=== PATIENT | female | born 1925 | race Caucasian/White ===

== ENCOUNTER 2016-11-13 11:44 | Inpatient (IN) | payer MEDICARE, BC ==
[~2016-11-13] VITALS: Ht 157.5 cm; Wt 66.9 kg
[2016-11-13] VITALS (10 sets, daily range): BP systolic 145–172; BP diastolic 65–72; PULSE 68–85; RESP 14–20; TEMP 98.2–98.4; O2SAT 92–98
[~2016-11-13 11:44] MED LIST: AMLO5TAB22 PO; ATOR40TA PO; LANO0.1212 PO; LEVO50TA4 PO; NITR0.4S SL; PANT40IN3 PO; PARI1CAP PO; SERT25TA83 PO; WARF5TAB PO
[2016-11-13] MEDS ORDERED: MORPHINE SULFATE 4 MG/ML INJ IV PUSH ONE (12:00)
[2016-11-13 12:01] LABS: AUTOMATED NEUTROPHIL # 9.3 TH/MM3 (1.8-7.7); BASOPHIL # 0.1 TH/MM3 (0-0.2); BASOPHIL % 0.5 % (0.0-2.0); EOSINOPHIL % 0.2 % (0.0-4.0); HEMATOCRIT 34.3 % (35.0-46.0); LYMPH % 10.7 % (9.0-44.0); LYMPHOCYTE # 1.2 TH/MM3 (1.0-4.8); MEAN CELL VOLUME 79.9 FL (80.0-100.0); MEAN CORPUSCULAR HGB CONC 32.6 % (32.0-36.0); MONO % 6.8 % (0.0-8.0); NEUT % 81.8 % (16.0-70.0); PLATELET COUNT 244 TH/MM3 (150-450); RED BLOOD COUNT 4.28 MIL/MM3 (4.00-5.30); RED CELL DISTRIBUTION WIDTH 15.9 % (11.6-17.2); WHITE BLOOD COUNT 11.4 TH/MM3 (4.0-11.0)
[2016-11-13 12:02] LABS: HEMO FLAGS DIFF FINAL
[2016-11-13 12:10] LABS: CHLORIDE 103 MEQ/L (98-107); POTASSIUM 3.7 MEQ/L (3.5-5.1); SODIUM (NA) 143 MEQ/L (136-145)
[2016-11-13 12:13] LABS: PROTHROMBIN TIME - PATIENT 46.7 SEC (9.8-11.6)
[2016-11-13 12:14] LABS: ANION GAP 9 MEQ/L (5-15); BICARBONATE 31.3 MEQ/L (21.0-32.0); BLOOD UREA NITROGEN 32 MG/DL (7-18)
[2016-11-13 12:17] LABS: ALT (GPT) 31 U/L (10-53); AST (GOT) 24 U/L (15-37); GLOMERULAR FILTRATION RATE 30 ML/MIN (>89)
[2016-11-13 12:19] LABS: TOTAL BILIRUBIN ADULT 0.7 MG/DL (0.2-1.0)
[2016-11-13 12:20] LABS: ALKALINE PHOSPHATASE 51 U/L (45-117)
[2016-11-13] MEDS ORDERED: AMLO5TAB2 PO (12:33)
[2016-11-13] MEDS ORDERED: ATOR40TA16 PO (12:33)
[2016-11-13] MEDS ORDERED: PRED5TAB PO (12:33)
[2016-11-13] MEDS ORDERED: NITR1SUS2 PO (12:33)
[2016-11-13] MEDS ORDERED: LEVO50TA4 PO (12:33)
[2016-11-13] MEDS ORDERED: LACTTAB13 PO (12:33)
[2016-11-13] MEDS ORDERED: DIGO0.127 PO (12:33)
[2016-11-13] MEDS ORDERED: KETOC2%T TOPICAL (12:33)
[2016-11-13] MEDS ORDERED: PANT40TA3 PO (12:33)
[2016-11-13] MEDS ORDERED: MELA5TAB15 PO (12:33)
[2016-11-13] MEDS ORDERED: PARI1CAP4 PO (12:33)
[2016-11-13] MEDS ORDERED: WARF-58 PO (12:34)
[2016-11-13] MEDS ORDERED: SERT-132 PO (12:34)
--- NOTE | 2016-11-13 12:55 | PD ---
HPI Chief Complaint: Fall Time Seen by Provider: 11:48 Travel History International Travel<30 days: No Contact w/Intl Traveler<30days: No Traveled to known affect area: No History of Present Illness HPI This is an 89 year old female who presents to the emergency department having fallen in the shower landing on her left side, with severe left sided rib pain, constant. She is not sure if she hit her head. She is on coumadin. She denies any other injuries. PFSH Past Medical History Hx Anticoagulant Therapy: Yes Arthritis: Yes Atrial Fibrillation: Yes Depression: Yes Heart Rhythm Problems: Yes Cancer: Yes (COLON) Cardiac Catheterization: Yes Cardiovascular Problems: Yes High Cholesterol: Yes Chemotherapy: Yes Congestive Heart Failure: Yes Cerebrovascular Accident: Yes Coronary Artery Disease: Yes Diabetes: No Diminished Hearing: No GERD: Yes Hypertension: Yes Immunizations Current: Yes Renal Failure: Yes (CKD, STENT L KIDNEY) Tetanus Vaccination: Unknown Influenza Vaccination: Yes ?: Not Past Surgical History Abdominal Surgery: Yes (COLON RESECTION) Appendectomy: Yes Cardiac Surgery: Yes (PACEMAKER) Coronary Artery Bypass Graft: No Genitourinary Surgery: Yes (STENT L KIDNEY) Hysterectomy: Yes Pacemaker: Yes Tonsillectomy: Yes Family History Family Myocardial Infarction: Yes Social History Alcohol Use: No Tobacco Use: No Substance Use: No Allergies-Medications (Allergen,Severity, Reaction): Coded Allergies: Sulfa (Verified Allergy, Unknown, RASH, 11/13/16) Reported Meds & Prescriptions Reported Meds & Active Scripts Active Reported Warfarin 3 Mg Tab 3.5 Mg PO DAILY Sertraline (Sertraline HCl) 50 Mg Tab 50 Mg PO DAILY Prednisone 5 Mg Tab 5 Mg PO DAILY Paricalcitol 1 Mcg Cap 1 Mcg PO DAILY Pantoprazole (Pantoprazole Sodium) 40 Mg Tab 40 Mg PO DAILY Nitrofurantoin Liq (Nitrofurantoin) 25 Mg/5 Ml Susp 100 Mg PO DAILY Melatonin 5 Mg Tab 3 Mg PO HS Levothyroxine (Levothyroxine Sodium) 50 Mcg Tab 50 Mcg PO DAILY Nizoral Topical Shampoo (Ketoconazole) 2% Sham 1 Applic TOPICAL 1XWEEK Apply to scalp Floranex (Lactobacillus Acidophilus) 1 Tab 4 Tab PO DAILY Digox (Digoxin) 0.125 Mg Tab 0.125 Mg PO 3XS WEEK Atorvastatin (Atorvastatin Calcium) 40 Mg Tab 40 Mg PO HS Amlodipine (Amlodipine Besylate) 5 Mg Tab 5 Mg PO BID Review of Systems Except as stated in HPI: all other systems reviewed are Neg Physical Exam Narrative GENERAL:Frail elderly female, uncomfortable in pain. SKIN: Warm and dry. HEAD: Atraumatic. Normocephalic. EYES: Pupils equal and round. No injection or drainage. ENT: Moist mucous membranes NECK: Trachea midline. CARDIOVASCULAR: Regular rate and rhythm. No murmur appreciated. RESPIRATORY: Clear to auscultation. Breath sounds equal bilaterally. Tender to palpation along the left lower anterior rib cage. GASTROINTESTINAL: Abdomen soft, non-tender, nondistended. MUSCULOSKELETAL: No obvious deformities. NEUROLOGICAL: Awake and alert. No obvious cranial nerve deficits. Moving all extremities. PSYCHIATRIC: Appropriate mood and affect; insight and judgment normal. Data Data Last Documented VS Vital Signs Date Time Temp Pulse Resp B/P Pulse Ox O2 Delivery O2 Flow Rate FiO2 11/13/16 12:43 74 18 148/66 94 Room Air 11/13/16 11:48 98.2 Orders Complete Blood Count With Diff (11/13/16 11:48) Comprehensive Metabolic Panel (11/13/16 11:48) Prothrombin Time / Inr (Pt) (11/13/16 11:48) Chest, Single Ap (11/13/16 ) Morphine Inj (Morphine Inj) (11/13/16 12:00) Ct Brain W/O Iv Contrast(Rout) (11/13/16 ) ^ Insert Iv (11/13/16 12:23) Ct Thorax/ Chest Wo Iv Contras (11/13/16 ) Ketamine Inj (Ketalar Inj) (11/13/16 13:30) Electrocardiogram (11/13/16 ) Troponin I (11/13/16 13:27) Admit Order (Ed Use Only) (11/13/16 13:27) Labs Laboratory Tests Test 11/13/16 11:55 White Blood Count 11.4 TH/MM3 Red Blood Count 4.28 MIL/MM3 Hemoglobin 11.2 GM/DL Hematocrit 34.3 % Mean Corpuscular Volume 79.9 FL Mean Corpuscular Hemoglobin 26.0 PG Mean Corpuscular Hemoglobin 32.6 % Concent Red Cell Distribution Width 15.9 % Platelet Count 244 TH/MM3 Mean Platelet Volume 7.9 FL Neutrophils (%) (Auto) 81.8 % Lymphocytes (%) (Auto) 10.7 % Monocytes (%) (Auto) 6.8 % Eosinophils (%) (Auto) 0.2 % Basophils (%) (Auto) 0.5 % Neutrophils # (Auto) 9.3 TH/MM3 Lymphocytes # (Auto) 1.2 TH/MM3 Monocytes # (Auto) 0.8 TH/MM3 Eosinophils # (Auto) 0.0 TH/MM3 Basophils # (Auto) 0.1 TH/MM3 CBC Comment DIFF FINAL Differential Comment Prothrombin Time 46.7 SEC Prothromb Time International 4.0 RATIO Ratio Sodium Level 143 MEQ/L Potassium Level 3.7 MEQ/L Chloride Level 103 MEQ/L Carbon Dioxide Level 31.3 MEQ/L Anion Gap 9 MEQ/L Blood Urea Nitrogen 32 MG/DL Creatinine 1.60 MG/DL Estimat Glomerular Filtration 30 ML/MIN Rate Random Glucose 105 MG/DL Calcium Level 9.0 MG/DL Total Bilirubin 0.7 MG/DL Aspartate Amino Transf 24 U/L (AST/SGOT) Alanine Aminotransferase 31 U/L (ALT/SGPT) Alkaline Phosphatase 51 U/L Troponin I 0.02 NG/ML Total Protein 7.4 GM/DL Albumin 3.6 GM/DL MDM Medical Decision Making Medical Screen Exam Complete: Yes Emergency Medical Condition: Yes Interpretation(s) Afebrile, no tachycardia, mild hypertension Mild leukocytosis Left shift Renal insufficiency Troponin is normal INR is 4 Last [address] 11/13/16 0000 Signed Impressions: Service Date/Time: Sunday, November 13, 2016 14:05 - CONCLUSION: 1. Stable noncontrast head CT. No acute finding is identified. 2. Chronic changes include cerebral atrophy and periventricular white matter low attenuation characteristic of chronic microvascular ischemia. Christopher Jain MD Chest X-Ray 11/13/16 0000 Signed Impressions: Service Date/Time: Sunday, November 13, 2016 12:41 - CONCLUSION: 1. Questionable fracture of one of the left upper ribs possibly the third rib laterally. Suggest correlation for pain at this site. No pneumothorax is present. If it would assist with clinical management x-ray rib series may be helpful for further evaluation. 2. Otherwise, stable examination of the chest. Christopher Jain MD Chest CT 11/13/16 0000 Signed Impressions: Service Date/Time: Sunday, November 13, 2016 14:10 - CONCLUSION: 1. The left third through seventh ribs are fractured anterolaterally. There is no associated pneumothorax. 2. Small left pleural effusion with bilateral dependent atelectasis and possible consolidation/contusion in the left lower lobe. Christopher Jain MD Differential Diagnosis Rib fracture, pneumothorax, pulmonary contusion, intracranial hemorrhage Narrative Course This is an 89-year-old female who presents to the emergency department having had a fall from standing in her shower. She is complaining of severe left- sided rib pain. She was placed on a monitor and an IV was established. She was given 3 mg of IV morphine. Her only complaint is her left rib pain. She has a benign abdomen. She is on Coumadin. CT of the head and chest were obtained. Chest CT demonstrates fractures of ribs 3 through 7. She was slightly hypoxic with an oxygen saturation between 89 and 91% on room air and very uncomfortable despite IV morphine. I decided to try a low-dose sub- dissociative ketamine dose as her blood pressure was reasonable and I didn't suspect a head injury. This significantly improved her anesthesia and her oxygen saturation seemed to improve because she was more comfortable taking deep breaths. She was given one additional dose prior to transport. Patient will be admitted to the intensive care unit at the [facility]. I spoke to Dr. Harry regarding the patient. Critical Care Narrative Aggregate critical care time was 45 minutes. Time to perform other separately billable procedures was not included in the critical care time. My time did not include minutes spent treating any other patients simultaneously or on activities that did not directly contribute to the patient's treatment. The services I provided to this patient were to treat and/or prevent clinically significant deterioration that could result in: Disability, I provided critical care services requiring my management, as noted below: Chart data review, documentation time, medication orders and management, vital sign assessments/reviewing monitor data, ordering and reviewing lab tests, ordering and interpreting/reviewing x-rays and diagnostic studies, care of the patient and discussion of the patient with the admitting physicians. Physician Communication Physician Communication Discussed with Dr. Felix Diagnosis Primary Impression: Multiple rib fractures involving four or more ribs Admitting Information Admitting Physician Requests: Admit Lavinia Sharp MD Nov 13, 2016 12:55
--- NOTE | 2016-11-13 13:09 | RADHPO ---
EXAM DATE/TIME: 11/13/2016 12:41 [facility] COMPARISON: CHEST SINGLE AP, May 28, 2016, 2:08. INDICATIONS : Left side chest and rib pain post fall today. MEDICAL HISTORY : Hypertension. Cardiovascular disease. SURGICAL HISTORY : Pacemaker. ENCOUNTER: Initial ACUITY: 1 day PAIN SCORE: 10/10 LOCATION: Left chest FINDINGS: Portable AP view the chest demonstrates cardiac silhouette size is upper limits for normal with left chest wall cardiac pacing device present. Lungs are underinflated but no effusion, consolidation, or pneumothorax is visualized. There is a potential cortical break in one of the upper lateral left ribs , possibly the third rib. No other rib fracture or acute finding is identified. CONCLUSION: 1. Questionable fracture of one of the left upper ribs possibly the third rib laterally. Suggest cathi elation for pain at this site. No pneumothorax is present. If it would assist with clinical managemen t x-ray rib series may be helpful for further evaluation. 2. Otherwise, stable examination of the chest. Christopher Jain MD on November 13, 2016 at 13:04 Board Certified Radiologist. This report was verified electronically.
[2016-11-13] MEDS ORDERED: KETAMINE HCL 500 MG/5 ML VIAL IV PUSH ONE ×2 (13:15→14:30)
[2016-11-13] MEDS ORDERED: KETAMINE HCL 500 MG/10 ML VIAL IV PUSH ONE ×3 (13:30)
--- NOTE | 2016-11-13 14:52 | RADHPO ---
EXAM DATE/TIME: 11/13/2016 14:05 [facility] COMPARISON: CT BRAIN W/O CONTRAST, May 28, 2016, 2:28. INDICATIONS : Fall today, cephalgia. RADIATION DOSE: 69.45 CTDIvol (mGy) MEDICAL HISTORY : Stroke. Myocardial infarction. Congestive heart failure. SURGICAL HISTORY : Pacemaker. ENCOUNTER: Initial ACUITY: 1 day PAIN SCALE: 5/10 LOCATION: Bilateral head TECHNIQUE: Multiple contiguous axial images were obtained of the head. Using automated exposure control and adj ustment of the mA and/or kV according to patient size, radiation dose was kept as low as reasonably a chievable to obtain optimal diagnostic quality images. FINDINGS: CEREBRUM: There is mild generalized cerebral atrophy. Ventricles are stable in size. There is periventricular w meme matter low attenuation that is stable. No evidence of midline shift, mass lesion, hemorrhage or acute infarction. No extra-axial fluid collections are seen. POSTERIOR FOSSA: The cerebellum and brainstem are intact. The 4th ventricle is midline. The cerebellopontine angle i s unremarkable. EXTRACRANIAL: The visualized portion of the orbits is intact. SKULL: The calvaria is intact. No evidence of skull fracture. CONCLUSION: 1. Stable noncontrast head CT. No acute finding is identified. 2. Chronic changes include cerebral atrophy and periventricular white matter low attenuation characte ristic of chronic microvascular ischemia. Christopher Jain MD on November 13, 2016 at 14:49 Board Certified Radiologist. This report was verified electronically.
--- NOTE | 2016-11-13 14:56 | RADHPO ---
EXAM DATE/TIME: 11/13/2016 14:10 [facility] COMPARISON: No previous studies available for comparison. INDICATIONS : Left sided chest pain status post fall onto left side today. RADIATION DOSE: 13.12 CTDIvol (mGy) MEDICAL HISTORY : Congestive heart failure. Myocardial infarction. Stroke. SURGICAL HISTORY : Pacemaker. ENCOUNTER: Initial ACUITY: 1 day PAIN SCALE: 10/10 LOCATION: Left chest TECHNIQUE: Volumetric scanning of the chest was performed. Using automated exposure control and adjustment of t he mA and/or kV according to patient size, radiation dose was kept as low as reasonably achievable to obtain optimal diagnostic quality images. FINDINGS: LUNGS: There is a small left pleural effusion. Dependent atelectasis bilaterally and there may be a mild deg ree of consolidation at the left lung base. No pneumothorax is visualized. There is a calcified granu hernandez in the left upper lobe. PLEURAE: There is a small left pleural effusion. MEDIASTINUM: The heart and great vessels demonstrate no acute abnormality. There is no mediastinal or hilar lymph adenopathy. Coronary artery calcification is present. There is severe atherosclerotic disease of the aorta. Small pericardial effusion is present. Cardiac pacing wires are present within the right heart . AXILLAE: Within normal limits. No lymphadenopathy. MUSCULOSKELETAL: There are left anterior lateral rib fractures involving the third through seventh ribs. No other frac ture is seen. MISCELLANEOUS: The visualized upper abdominal organs demonstrate no acute abnormality. CONCLUSION: 1. The left third through seventh ribs are fractured anterolaterally. There is no associated pneumoth orax. 2. Small left pleural effusion with bilateral dependent atelectasis and possible consolidation/contus ion in the left lower lobe. Christopher Jain MD on November 13, 2016 at 14:51 Board Certified Radiologist. This report was verified electronically.
[2016-11-13] MEDS ORDERED: SODIUM CHLORIDE 0.9% FLUSH 5 ML FLUSH IVF PRN (15:30)
[2016-11-13] MEDS ORDERED: ONDANSETRON HCL 4 MG/2 ML VIAL IV PRN (15:30)
[2016-11-13] MEDS ORDERED: NALOXONE HCL 0.4 MG/ML AMP IV PRN (15:30)
[2016-11-13] MEDS ORDERED: Post-op Orders (for Pharmacy) MISC XX ONE (15:30)
[2016-11-13] MEDS: PANTOPRAZOLE SOD 40 MG DELAYED RELEASE TAB PO SCH (15:42)
[2016-11-13] MEDS: SODIUM CHLOR 0.9% 1000 ML INJ 1,000 ML IV SCH (15:43)
[2016-11-13] MEDS ORDERED: MORPHINE SULFATE 4 MG/ML INJ IV ONE (15:45)
[2016-11-13] MEDS: oxyCODONE/ACETAMINOPHEN 5 MG/325 MG TAB PO PRN ×2 (16:01→22:25)
--- NOTE | 2016-11-13 16:44 | MH ---
cc: CAMILA AGUILERA MD DATE OF ADMISSION: 11/13/2016 REASON FOR ADMISSION Fall, fracture of the left-sided ribs, respiratory insufficiency, pulmonary contusion. HISTORY OF PRESENT ILLNESS This 89-year-old female fell in the bathtub and was transferred to [facility] ER, we were called to transfer the patient to ICU here for further care. The patient apparently fell in the bathtub this morning and now she is complaining of severe left-sided chest pain. PAST MEDICAL HISTORY 1. Hypothyroidism. 2. Hypertension. 3. COPD. 4. Chronic atrial fibrillation. PAST SURGICAL HISTORY Unknown. MEDICATIONS Medications are on the record. The patient is on Coumadin. INR is 4. SOCIAL HISTORY The patient does not smoke and drink. PHYSICAL EXAMINATION GENERAL: Reveals an 89-year-old female. HEENT: Normocephalic. No trauma to the head. Pupils equally reactive. Extraocular muscles intact. NECK: Supple. Bilateral carotid pulses. No bruits. CHEST: Clear. Decreased breath sounds. Bilateral splinting of the left side of the chest and very tender on palpation of the left chest consistent with 4, 5, 6 and 7 rib fractures and pulmonary contusion. HEART: Irregular rhythm. The patient is in slow a-fib of about 80-85. ABDOMEN: Soft, active bowel sounds. No rebound. No guarding. No masses. No signs of trauma to the abdomen. EXTREMITIES: The patient has palpable femoral pulses and palpable dorsalis pedis and posterior tibial pulses. No signs of acute vascular deficit. BACK: Back is normal. IMPRESSION The patient fell in the tub with currently rib fractures, pulmonary contusion and small hemothorax. The patient is admitted for further care. The patient might need to be intubated in the future should her pulmonary status worsen which is common in elderly patients. Critical care time 50 minutes. Camila KING /3:45 PM /4:20 PM
[2016-11-13] MEDS: MORPHINE SULFATE 4 MG/ML INJ IV PUSH PRN ×3 (17:23→22:21)
--- NOTE | 2016-11-13 17:33 | RADRPT ---
EXAM DATE/TIME: 11/13/2016 17:12 [facility] COMPARISON: No previous studies available for comparison. INDICATIONS : Fall. Pelvic pain. MEDICAL HISTORY : None. SURGICAL HISTORY : None. ENCOUNTER: Initial ACUITY: 2 days PAIN SCORE: 8/10 LOCATION: Bilateral pelvis FINDINGS: No fracture is seen. The hip joints are normally aligned. There is some hypertrophic change seen ar ound the periphery of the left femoral head. The bowel gas pattern appears normal. CONCLUSION: No acute abnormality is seen. There is some mild hypertrophic change seen at the periphery of the le ft femoral head. Christopher Salazar MD on November 13, 2016 at 17:25 Board Certified Radiologist. This report was verified electronically.
[2016-11-13] MEDS ORDERED: DOCUSATE SODIUM 100 MG CAP PO SCH (21:00)
[2016-11-13] MEDS: SODIUM CHLORIDE 0.9% FLUSH 5 ML FLUSH IVF SCH (21:00)
[2016-11-14] VITALS (14 sets, daily range): BP systolic 119–160; BP diastolic 58–70; PULSE 64–89; RESP 13–30; TEMP 98–98.5; O2SAT 92–95
[2016-11-14 03:46] LABS: HEMATOCRIT 30.6 % (35.0-46.0); MEAN CELL VOLUME 80.7 FL (80.0-100.0); MEAN CORPUSCULAR HGB CONC 32.2 % (32.0-36.0); PLATELET COUNT 207 TH/MM3 (150-450); RED BLOOD COUNT 3.79 MIL/MM3 (4.00-5.30); RED CELL DISTRIBUTION WIDTH 17.1 % (11.6-17.2); REVIEW FLAG FINAL; WHITE BLOOD COUNT 12.3 TH/MM3 (4.0-11.0)
[2016-11-14] MEDS: LEVOTHYROXINE SODIUM 50 MCG TAB PO SCH (06:09)
--- NOTE | 2016-11-14 06:37 | RADRPT ---
EXAM DATE/TIME: 11/14/2016 04:39 [facility] COMPARISON: CHEST SINGLE AP, November 13, 2016, 12:41. INDICATIONS : Evaluate after traumatic injury and rib fractures. MEDICAL HISTORY : Congestive heart failure. Myocardial infarction. Stroke. SURGICAL HISTORY : Pacemaker. ENCOUNTER: Subsequent ACUITY: 2 days PAIN SCORE: Non-responsive. LOCATION: Bilateral chest FINDINGS: Increasing consolidation in the left lower lobe with loss of delineation of the entire left hemidiaph ragm. There is some hazy opacity in the right lower chest with mild blunting of the costophrenic ang le suggesting a right pleural effusion. The heart is upper limits normal size. Patient has multiple known left rib fractures. There is a questionable pleural reflection at the left apex suggesting a 12 mm left pneumothorax. Calcified nodule left upper lung stable. CONCLUSION: 1. Findings chest the development of a small left apical pneumothorax measuring 12 mm. 2. Increasing consolidation in the left lower lobe. Timothy Chen MD on November 14, 2016 at 6:32 Board Certified Radiologist. This report was verified electronically.
--- NOTE | 2016-11-14 07:10 | PD.CONS ---
HPI Service Critical Care Medicine Consult Requested By Trauma Service Primary Care Physician Non-Staff History of Present Illness Elderly, frail woman fell and fractured several ribs left side, shubham-lateral. Considerable pain. Required narcan for narcotic reversal after receiving morphine 4 mg. Will reduce dose and add tylenol. Small apical pneumothorax noted this morning on CXR and some atelectasis LLL. I won't do formal consult but will follow with you. Past Family Social History Allergies: Coded Allergies: Sulfa (Verified Allergy, Unknown, RASH, 11/13/16) Physical Exam Vital Signs Vital Signs Date Time Temp Pulse Resp B/P Pulse Ox O2 Delivery O2 Flow Rate FiO2 11/14/16 06:00 71 11/14/16 04:00 78 11/14/16 04:00 98.1 68 19 119/58 95 11/14/16 02:00 72 11/14/16 00:00 98.2 89 24 160/66 92 11/14/16 00:00 86 11/13/16 22:00 68 11/13/16 20:44 92 Nasal Cannula 3.00 11/13/16 20:00 83 11/13/16 20:00 98.2 84 18 156/67 93 11/13/16 19:00 94 Nasal Cannula 2.00 11/13/16 18:00 76 11/13/16 16:00 82 11/13/16 16:00 98.4 71 14 172/72 95 11/13/16 15:47 97 Nasal Cannula 3.00 11/13/16 14:35 82 18 155/66 95 Nasal Cannula 4 11/13/16 13:35 76 18 160/70 98 Nasal Cannula 4 11/13/16 12:43 74 18 148/66 94 Room Air 11/13/16 11:48 98.2 85 20 145/65 95 11/13/16 11:45 95 Room Air Laboratory Laboratory Tests Test 11/13/16 11/13/16 11/14/16 11:55 15:20 02:58 White Blood Count 11.4 12.3 Red Blood Count 4.28 3.79 Hemoglobin 11.2 9.9 Hematocrit 34.3 30.6 Mean Corpuscular Volume 79.9 80.7 Mean Corpuscular Hemoglobin 26.0 26.0 Mean Corpuscular Hemoglobin 32.6 32.2 Concent Red Cell Distribution Width 15.9 17.1 Platelet Count 244 207 Mean Platelet Volume 7.9 8.1 Neutrophils (%) (Auto) 81.8 Lymphocytes (%) (Auto) 10.7 Monocytes (%) (Auto) 6.8 Eosinophils (%) (Auto) 0.2 Basophils (%) (Auto) 0.5 Neutrophils # (Auto) 9.3 Lymphocytes # (Auto) 1.2 Monocytes # (Auto) 0.8 Eosinophils # (Auto) 0.0 Basophils # (Auto) 0.1 CBC Comment DIFF FINAL Differential Comment Prothrombin Time 46.7 Prothromb Time International 4.0 Ratio Sodium Level 143 Potassium Level 3.7 Chloride Level 103 Carbon Dioxide Level 31.3 Anion Gap 9 Blood Urea Nitrogen 32 Creatinine 1.60 Estimat Glomerular Filtration 30 Rate Random Glucose 105 Calcium Level 9.0 Total Bilirubin 0.7 Aspartate Amino Transf 24 (AST/SGOT) Alanine Aminotransferase 31 (ALT/SGPT) Alkaline Phosphatase 51 Troponin I 0.02 Total Protein 7.4 Albumin 3.6 Nasal Screen MRSA (PCR) NEGATIVE Result Diagram: 11/14/16 0258 11/13/16 1155 Bandar Lazo MD Nov 14, 2016 07:10
[2016-11-14] MEDS ORDERED: MORPHINE SULFATE 4 MG/ML INJ IV PUSH PRN ×2 (07:15→07:45)
[2016-11-14] MEDS ORDERED: ACETAMINOPHEN 325 MG TAB PO PRN (07:15)
[2016-11-14] MEDS ORDERED: LACTULOSE SYRUP 20 GM/30 ML CUP PO PRN (07:30)
[2016-11-14] MEDS: ACETAMINOPHEN 1000 MG/100 ML VIAL IV SCH ×3 (08:00→20:23)
[2016-11-14] MEDS: SODIUM CHLOR 0.9% 1000 ML INJ 1,000 ML IV SCH ×2 (08:40→23:56)
[2016-11-14] MEDS ORDERED: PILL SPLITTER OTHER PRN (09:00)
[2016-11-14] MEDS: SODIUM CHLORIDE 0.9% FLUSH 5 ML FLUSH IVF SCH ×2 (09:00→20:24)
[2016-11-14] MEDS: LACTOBACILLUS ACIDOPHILUS TAB PO SCH (09:42)
[2016-11-14] MEDS: DIGOXIN 0.125 MG TAB PO SCH (09:42)
[2016-11-14] MEDS: PARICALCITOL 1 MCG CAP PO SCH (09:43)
[2016-11-14] MEDS: SERTRALINE HCL 50 MG TAB PO SCH (09:43)
[2016-11-14] MEDS: MAGNESIUM HYDROXIDE SUSP 30 ML CUP PO SCH (09:43)
[2016-11-14] MEDS: LIDOCAINE HCL 5% PATCH TD SCH (09:43)
[2016-11-14] MEDS: DOCUSATE SODIUM 50 MG/SENNA 8.6 MG TAB PO SCH ×2 (09:43→20:23)
[2016-11-14] MEDS ORDERED: RESP: ALBUTEROL 2.5 MG/IPRATROPIUM 0.5 MG NEB (PRN) NEB (10:15)
[2016-11-14] MEDS: predniSONE 5 MG TAB PO SCH (10:59)
[2016-11-14] MEDS: PANTOPRAZOLE SOD 40 MG DELAYED RELEASE TAB PO SCH (15:31)
[2016-11-14] MEDS: oxyCODONE/ACETAMINOPHEN 5 MG/325 MG TAB PO PRN ×2 (15:57→21:56)
[2016-11-14] MEDS: RESP: ALBUTEROL 2.5 MG/IPRATROPIUM 0.5 MG NEB (SCH) NEB ×4 (16:00→23:47)
--- NOTE | 2016-11-14 16:16 | HHI.CCPN ---
Subjective Brief History 89-year-old female fell in the bathtub and was initially transferred to [facility]. Patient was found to have multiple left-sided rib fractures, hemothorax and pulmonary contusion so was transferred to [facility] for trauma services. INJURIES: LEFT rib fx (3-7) LEFT lung contusion Small LEFT hemothorax 24 Hour Review/Hospital Course 11/14/16 Patient has been observed in ICU since last night. Patient received IV morphine 4 mg last night and developed respiratory depression. 1 dose of Narcan was effective. Upon examination patient is in significant pain and is breathing very shallow. Patient refuses refuses to move, talk or eat at this time. (Manpreet Horton) Objective Vital Signs Date Time Temp Pulse Resp B/P Pulse Ox O2 Delivery O2 Flow Rate FiO2 11/14/16 14:28 18 11/14/16 14:00 69 11/14/16 12:00 98.0 127/60 95 11/14/16 08:25 Nasal Cannula 4.00 Intake and Output 11/13/16 11/13/16 11/14/16 08:00 16:00 00:00 Intake Total 236 ml Balance 236 ml (Manpreet Horton) Result Diagram: 11/14/16 0258 11/13/16 1155 Imaging Last 24 hours Impressions Chest X-Ray 11/14/16 0600 Signed Impressions: Service Date/Time: Monday, November 14, 2016 04:39 - CONCLUSION: 1. Findings chest the development of a small left apical pneumothorax measuring 12 mm. 2. Increasing consolidation in the left lower lobe. Timothy Chen MD (Manpreet Horton) Assessment and Plan Plan GENERAL: 89-year-old frail female lying in bed. SKIN: Warm and dry. HEAD: Normocephalic. EYES: PERRL. ENT: No nasal bleeding or discharge. Mucous membranes pink and moist. NECK: Trachea midline. No JVD. CARDIOVASCULAR: Regular rate and rhythm. RESPIRATORY: No accessory muscle use. Lungs diminished to auscultation. Barely any air movement. GASTROINTESTINAL: NGT. Abdomen soft, non-tender, nondistended. + BS. MUSCULOSKELETAL: Extremities without cyanosis, no edema noted. No obvious deformities. NEUROLOGICAL: Awake and alert. Not verbalizing. NEUROLOGICAL: Provide analgesia for pain control. [place], lidocaine patch & Ofirmev x 24h Follows commands, alert HOB elevated > 30 degrees CARDIOVASCULAR: HR = sinus rhythm, paced. HR = 65-75 BPM. BP = stable, MAP 70-90 PMHx: CAD, A. fib, pacemaker placement, HTN, hyperlipidemia Resumed home blood pressure medications Follow CMP - Electrolyte protocol in place for replacement. RESPIRATORY: Nasal cannula 2 L Continue to monitor closely for hypoxemia. Pulmonary toilet -Acapella, incentive spirometer, EZPAP Bronchodilators - Duonebs q2H PRN 11/14 CXR -small left apical pneumothorax measuring 12 mm. Increased consolidation in the left lower lobe. Chest X-Ray in a.m. GASTROINTESTINAL: Diet -advance to regular Bowel regimen -Asya-colace, MOM. No BM yet. RENAL / URINARY: I&O +739 BUN / creat 32 / 1.60 ENDOCRINE: BGM - 105 HEMATOLOGY: H&H: 9.9 / 30.6 PLT 207 INR 4, Coumadin therapy on hold CBC, PT/INR in a.m. Monitor patient for any bleeding complications. INFECTIOUS DISEASE: Follow CBC WBC 12.3 Afebrile Administer antipyretics as needed PROPHYLAXIS: GI - Protonix PO DVT - Mechanical VTE with SCDs. SKIN: Warm / Dry ACTIVITY: Status - OOB PT evaluating. CASE MANAGEMENT: Consulted for assist with DC planning. Placement - disposition will depend on patient progress. After discussion with patient's daughter regarding prognosis and strong likelihood of needing mechanical ventilator support due to significant rib fractures and atelectasis. Patient's daughter decided to make the patient a DNR. Plan of care discussed with patient, daughter and RN at bedside. Trauma surgery team will round daily and evaluate patient and adjust the treatment plan. (Manpreet Horton) Attestation Patient with significant pelvic injury in next fix Patient will need extensive rehabilitation and currently [place] the case management to make arrangements to transfer patient either to [facility] or outside acute rehabilitation unit The exam, history, and the medical decision-making described in the above note were completed with the assistance of the mid-level provider. I reviewed and agree with the findings presented. I attest that I had a [id number] encounter with the patient on the same day, and personally performed and documented my assessment and findings in the medical record. (Camila Phelps MD) Manpreet Horton Nov 14, 2016 16:16 Camila Phelps MD Nov 18, 2016 16:48
[2016-11-14] MEDS: ATORVASTATIN 40 MG TAB PO SCH (20:23)
[2016-11-14] MEDS: MELATONIN 5 MG TAB PO SCH (20:23)
[2016-11-14] MEDS: REMOVE OLD PATCH T-DERMAL SCH (21:00)
[2016-11-15] VITALS (14 sets, daily range): BP systolic 102–168; BP diastolic 55–86; PULSE 74–95; RESP 12–24; TEMP 98.2–98.6; O2SAT 92–96
[2016-11-15] MEDS: ACETAMINOPHEN 1000 MG/100 ML VIAL IV SCH ×3 (01:54→20:47)
[2016-11-15] MEDS: oxyCODONE/ACETAMINOPHEN 5 MG/325 MG TAB PO PRN ×3 (04:02→16:32)
[2016-11-15] MEDS: LEVOTHYROXINE SODIUM 50 MCG TAB PO SCH (04:02)
[2016-11-15 04:15] LABS: MEAN CELL VOLUME 80.3 FL (80.0-100.0); MEAN CORPUSCULAR HEMOGLOBIN 26.3 PG (27.0-34.0); MEAN CORPUSCULAR HGB CONC 32.7 % (32.0-36.0); PLATELET COUNT 177 TH/MM3 (150-450); RED BLOOD COUNT 3.61 MIL/MM3 (4.00-5.30); REVIEW FLAG FINAL; WHITE BLOOD COUNT 8.8 TH/MM3 (4.0-11.0)
[2016-11-15] MEDS: RESP: ALBUTEROL 2.5 MG/IPRATROPIUM 0.5 MG NEB (SCH) NEB ×5 (04:23→21:52)
[2016-11-15 04:24] LABS: INTERNATIONAL NORMALIZED RATIO 4.1 RATIO; PROTHROMBIN TIME - PATIENT 47.6 SEC (9.8-11.6)
--- NOTE | 2016-11-15 04:36 | RADRPT ---
EXAM DATE/TIME: 11/15/2016 03:44 [facility] COMPARISON: CHEST SINGLE AP, November 14, 2016, 4:39. INDICATIONS : Evaluate after traumatic injury and rib fractures. MEDICAL HISTORY : Congestive heart failure. Myocardial infarction. SURGICAL HISTORY : Pacemaker. ENCOUNTER: Subsequent ACUITY: 3 days PAIN SCORE: Non-responsive. LOCATION: Bilateral chest FINDINGS: There is a stable 5 mm apical left pneumothorax. The lung sanders are otherwise stable. Heart size is large but stable. There is a stable mild infiltrate in the left midlung. No pleural effusions. There is a pacemaker overlying the left chest. No new or significant changes. CONCLUSION: 1. Stable tiny left apical pneumothorax with 5 mm of separation. 2. No significant change. Flavio Whittaker MD on November 15, 2016 at 4:33 Board Certified Radiologist. This report was verified electronically.
[2016-11-15 04:43] LABS: BICARBONATE 28.4 MEQ/L (21.0-32.0); POTASSIUM 3.4 MEQ/L (3.5-5.1)
[2016-11-15] MEDS ORDERED: LACTULOSE SYRUP 20 GM/30 ML CUP PO ONE (08:00)
[2016-11-15] MEDS ORDERED: POTASSIUM CHLORIDE 25 MEQ EFFERVESCENT TAB PO ONE (08:00)
[2016-11-15] MEDS: LIDOCAINE HCL 5% PATCH TD SCH (08:40)
[2016-11-15] MEDS: predniSONE 5 MG TAB PO SCH (08:42)
[2016-11-15] MEDS: DOCUSATE SODIUM 50 MG/SENNA 8.6 MG TAB PO SCH ×2 (08:42→20:47)
[2016-11-15] MEDS: MAGNESIUM HYDROXIDE SUSP 30 ML CUP PO SCH (08:42)
[2016-11-15] MEDS: SODIUM CHLORIDE 0.9% FLUSH 5 ML FLUSH IVF SCH ×2 (08:42→20:47)
[2016-11-15] MEDS: LACTOBACILLUS ACIDOPHILUS TAB PO SCH (08:42)
[2016-11-15] MEDS: SERTRALINE HCL 50 MG TAB PO SCH (08:42)
[2016-11-15] MEDS ORDERED: CYCLOBENZAPRINE HCL 10 MG TAB PO PRN (10:00)
[2016-11-15] MEDS: DIGOXIN 0.125 MG TAB PO SCH (10:01)
[2016-11-15] MEDS: PANTOPRAZOLE SOD 40 MG DELAYED RELEASE TAB PO SCH (16:32)
--- NOTE | 2016-11-15 17:18 | HHI.CCPN ---
Subjective Brief History 89-year-old female fell in the bathtub and was initially transferred to [facility]. Patient was found to have multiple left-sided rib fractures, hemothorax and pulmonary contusion so was transferred to [facility] for trauma services. INJURIES: LEFT rib fx (3-7) LEFT lung contusion Small LEFT hemothorax 24 Hour Review/Hospital Course 11/14/16 Patient has been observed in ICU since last night. Patient received IV morphine 4 mg last night and developed respiratory depression. 1 dose of Narcan was effective. Upon examination patient is in significant pain and is breathing very shallow. Patient refuses refuses to move, talk or eat at this time. 11/15/16 Patient doing better today To significant amount of pain in the chest status post rib fractures Better expansion of both lungs Patient be transferred to the floor today Will need permanent placement Advanced diet with the addition of high caloric supplements Objective Vital Signs Date Time Temp Pulse Resp B/P Pulse Ox O2 Delivery O2 Flow Rate FiO2 11/15/16 16:00 82 11/15/16 16:00 98.3 24 143/63 95 11/15/16 08:11 Nasal Cannula 5.00 Intake and Output 11/14/16 11/14/16 11/15/16 08:00 16:00 00:00 Intake Total 503 ml 772 ml 477 ml Output Total 0 ml 0 ml Balance 503 ml 772 ml 477 ml Result Diagram: 11/15/16 0331 11/15/16 0331 Imaging Last 24 hours Impressions Chest X-Ray 11/15/16 0600 Signed Impressions: Service Date/Time: Tuesday, November 15, 2016 03:44 - CONCLUSION: 1. Stable tiny left apical pneumothorax with 5 mm of separation. 2. No significant change. Flavio Whittaker MD Exam [employer] Francisca Coma Scale about 11 or 12 patient refuses to converse too much Hemodynamic/Cardiac Hemodynamically remains stable Pulmonary/Respiratory Bilateral breath sounds splinting of the chest over the area of the fractures but no hemothorax or pneumothorax noted Abdomen/GI Nutrition Abdomen is soft feedings well tolerated Renal/I&O Good urine output we'll place a Mon Assessment and Plan Plan GENERAL: 89-year-old frail female lying in bed. SKIN: Warm and dry. HEAD: Normocephalic. EYES: PERRL. ENT: No nasal bleeding or discharge. Mucous membranes pink and moist. NECK: Trachea midline. No JVD. CARDIOVASCULAR: Regular rate and rhythm. RESPIRATORY: No accessory muscle use. Lungs diminished to auscultation. Barely any air movement. GASTROINTESTINAL: NGT. Abdomen soft, non-tender, nondistended. + BS. MUSCULOSKELETAL: Extremities without cyanosis, no edema noted. No obvious deformities. NEUROLOGICAL: Awake and alert. Not verbalizing. NEUROLOGICAL: Provide analgesia for pain control. Kountze, lidocaine patch & Ofirmev x 24h Follows commands, alert HOB elevated > 30 degrees CARDIOVASCULAR: HR = sinus rhythm, paced. HR = 65-75 BPM. BP = stable, MAP 70-90 PMHx: CAD, A. fib, pacemaker placement, HTN, hyperlipidemia Resumed home blood pressure medications Follow CMP - Electrolyte protocol in place for replacement. RESPIRATORY: Nasal cannula 2 L Continue to monitor closely for hypoxemia. Pulmonary toilet -Acapella, incentive spirometer, EZPAP Bronchodilators - Duonebs q2H PRN 11/14 CXR -small left apical pneumothorax measuring 12 mm. Increased consolidation in the left lower lobe. Chest X-Ray in a.m. GASTROINTESTINAL: Diet -advance to regular Bowel regimen -Asya-colace, MOM. No BM yet. RENAL / URINARY: I&O +739 BUN / creat 32 / 1.60 ENDOCRINE: BGM - 105 HEMATOLOGY: H&H: 9.9 / 30.6 PLT 207 INR 4, Coumadin therapy on hold CBC, PT/INR in a.m. Monitor patient for any bleeding complications. INFECTIOUS DISEASE: Follow CBC WBC 12.3 Afebrile Administer antipyretics as needed PROPHYLAXIS: GI - Protonix PO DVT - Mechanical VTE with SCDs. SKIN: Warm / Dry ACTIVITY: Status - OOB PT evaluating. CASE MANAGEMENT: Consulted for assist with DC planning. Placement - disposition will depend on patient progress. After discussion with patient's daughter regarding prognosis and strong likelihood of needing mechanical ventilator support due to significant rib fractures and atelectasis. Patient's daughter decided to make the patient a DNR. Plan of care discussed with patient, daughter and RN at bedside. Trauma surgery team will round daily and evaluate patient and adjust the treatment plan. Attestation Transfer patient to floor and then to senior living facility The exam, history, and the medical decision-making described in the above note were completed with the assistance of the mid-level provider. I reviewed and agree with the findings presented. I attest that I had a [id number] encounter with the patient on the same day, and personally performed and documented my assessment and findings in the medical record. Critical care time 35 minutes. Camila Phelps MD Nov 15, 2016 17:18
[2016-11-15] MEDS: ATORVASTATIN 40 MG TAB PO SCH (20:47)
--- NOTE | 2016-11-15 20:52 | EKG ---
Date Performed: 11/13/2016 Time Performed: 17:51:33 PTAGE: 89 years EKG: ATRIAL FIBRILLATION WITH CONTROLLED VENTRICULAR RESPONSE, OCCASIONAL DEMAND PACING MODERATE INTRAVENTRICULAR CONDUCTION DELAY MINIMAL ST/T WAVE CHANGES, CANNOT RULE OUT ISCHEMIA ABNORMAL ECG PREVIOUS TRACING : 11/13/2016 13.25 Compared to the previous tracing, no significant change DOCTOR: Juan Manuel Chavez Interpretating Date/Time 11/15/2016 20:50:56
[2016-11-15] MEDS: MELATONIN 5 MG TAB PO SCH (21:00)
[2016-11-15] MEDS: REMOVE OLD PATCH T-DERMAL SCH (21:00)
--- NOTE | 2016-11-15 21:33 | EKG ---
Date Performed: 11/13/2016 Time Performed: 13:25:18 PTAGE: 89 years EKG: Atrial fibrillation with controlled ventricular response Demand pacing Left axis deviation RBBB with left anterior fascicular block Inferior/lateral ST-T changes may be due to hypertrophy and/ or ischemia Abnormal ECG PREVIOUS TRACING : 05/28/2016 03.24 Compared to the previous tracing, previously mostly paced w hich affects comparison DOCTOR: Juan Manuel Chavez Interpretating Date/Time 11/15/2016 21:32:40
[2016-11-16] VITALS (9 sets, daily range): BP systolic 113–171; BP diastolic 58–77; PULSE 71–89; RESP 18–20; TEMP 97.9–98.8; O2SAT 93–98
[2016-11-16] MEDS: RESP: ALBUTEROL 2.5 MG/IPRATROPIUM 0.5 MG NEB (SCH) NEB ×7 (00:21→23:35)
[2016-11-16] MEDS: ACETAMINOPHEN 1000 MG/100 ML VIAL IV SCH ×3 (02:00→16:59)
[2016-11-16] MEDS: LEVOTHYROXINE SODIUM 50 MCG TAB PO SCH (05:51)
[2016-11-16 07:19] LABS: HEMATOCRIT 29.8 % (35.0-46.0); MEAN CORPUSCULAR HEMOGLOBIN 26.5 PG (27.0-34.0); MEAN CORPUSCULAR HGB CONC 33.2 % (32.0-36.0); PLATELET COUNT 187 TH/MM3 (150-450); RED BLOOD COUNT 3.73 MIL/MM3 (4.00-5.30); RED CELL DISTRIBUTION WIDTH 16.8 % (11.6-17.2); REVIEW FLAG FINAL; WHITE BLOOD COUNT 9.2 TH/MM3 (4.0-11.0)
[2016-11-16] MEDS ORDERED: BISACODYL 10 MG SUPP RECTAL ONE (07:30)
[2016-11-16] MEDS ORDERED: BISACODYL EC 5 MG TABEC PO ONE (07:30)
[2016-11-16 07:47] LABS: BICARBONATE 28.5 MEQ/L (21.0-32.0); MAGNESIUM 1.9 MG/DL (1.5-2.5)
[2016-11-16] MEDS: MAGNESIUM HYDROXIDE SUSP 30 ML CUP PO SCH (08:38)
[2016-11-16] MEDS: amLODIPine BESYLATE 5 MG TAB PO SCH ×2 (08:38→20:32)
[2016-11-16] MEDS: LACTOBACILLUS ACIDOPHILUS TAB PO SCH (08:38)
[2016-11-16] MEDS: predniSONE 5 MG TAB PO SCH (08:38)
[2016-11-16] MEDS: DIGOXIN 0.125 MG TAB PO SCH (08:38)
[2016-11-16] MEDS: DOCUSATE SODIUM 50 MG/SENNA 8.6 MG TAB PO SCH ×2 (08:38→20:32)
[2016-11-16] MEDS: LIDOCAINE HCL 5% PATCH TD SCH (08:39)
[2016-11-16] MEDS: SERTRALINE HCL 50 MG TAB PO SCH (08:39)
[2016-11-16] MEDS: SODIUM CHLORIDE 0.9% FLUSH 5 ML FLUSH IVF SCH ×2 (08:39→20:32)
[2016-11-16] MEDS ORDERED: POTASSIUM CHLORIDE 10 MEQ CONTROLLED RELEASE TAB PO ONE (09:00)
[2016-11-16] MEDS: POTASSIUM CHLOR 20 MEQ PREMIX 100 ML IV SCH ×2 (09:59→10:00)
[2016-11-16] MEDS: oxyCODONE/ACETAMINOPHEN 5 MG/325 MG TAB PO PRN ×2 (10:04→16:00)
[2016-11-16] MEDS: PARICALCITOL 1 MCG CAP PO SCH ×2 (10:20→10:21)
[2016-11-16] MEDS ORDERED: NITROFURANTOIN 100 MG PO SCH (12:30)
[2016-11-16] MEDS ORDERED: SERTRALINE HCL 50 MG TAB PO SCH (12:30)
--- NOTE | 2016-11-16 12:37 | HHI.PR ---
Subjective Subjective Notes PTD: 3 Pt is asleep. Visitor at bedside. Discussed plan of care and arrangements for discharge to rehab if she qualifies. Objective Vitals/I&O Vital Signs Date Time Temp Pulse Resp B/P Pulse Ox O2 Delivery O2 Flow Rate FiO2 11/16/16 12:01 Nasal Cannula 3.00 11/16/16 09:08 95 11/16/16 04:59 98.0 81 20 171/77 Labs Laboratory Tests Test 11/16/16 06:37 White Blood Count 9.2 Red Blood Count 3.73 Hemoglobin 9.9 Hematocrit 29.8 Mean Corpuscular Volume 80.0 Mean Corpuscular Hemoglobin 26.5 Mean Corpuscular Hemoglobin 33.2 Concent Red Cell Distribution Width 16.8 Platelet Count 187 Mean Platelet Volume 8.6 Sodium Level 143 Potassium Level 3.0 Chloride Level 106 Carbon Dioxide Level 28.5 Anion Gap 9 Blood Urea Nitrogen 16 Creatinine 0.90 Estimat Glomerular Filtration 59 Rate Random Glucose 99 Calcium Level 8.6 Magnesium Level 1.9 Radiology Last Impressions Chest X-Ray 11/15/16 0600 Signed Impressions: Service Date/Time: Tuesday, November 15, 2016 03:44 - CONCLUSION: 1. Stable tiny left apical pneumothorax with 5 mm of separation. 2. No significant change. Flavio Whittaker MD Pelvis X-Ray 11/13/16 0000 Signed Impressions: Service Date/Time: Sunday, November 13, 2016 17:12 - CONCLUSION: No acute abnormality is seen. There is some mild hypertrophic change seen at the periphery of the left femoral head. Christopher Salazar MD Head CT 11/13/16 0000 Signed Impressions: Service Date/Time: Sunday, November 13, 2016 14:05 - CONCLUSION: 1. Stable noncontrast head CT. No acute finding is identified. 2. Chronic changes include cerebral atrophy and periventricular white matter low attenuation characteristic of chronic microvascular ischemia. Christopher Jain MD Chest CT 11/13/16 0000 Signed Impressions: Service Date/Time: Sunday, November 13, 2016 14:10 - CONCLUSION: 1. The left third through seventh ribs are fractured anterolaterally. There is no associated pneumothorax. 2. Small left pleural effusion with bilateral dependent atelectasis and possible consolidation/contusion in the left lower lobe. Christopher Jain MD Narrative Exam GENERAL: This is a 89-year-old female asleep in bed. SKIN: Warm and dry. HEAD: Atraumatic. Normocephalic. EYES: PERRLA ENT: No nasal bleeding or discharge. Mucous membranes pink and moist. NECK: Trachea midline. No JVD. CARDIOVASCULAR: Regular rate and rhythm. RESPIRATORY: No accessory muscle use. Lungs are clear to auscultation. Breath sounds equal bilaterally. No distress or dyspnea. GASTROINTESTINAL: BS + x 4 quads. Abdomen soft, non-tender, nondistended. MUSCULOSKELETAL: Extremities without cyanosis, or edema. + peripheral pulses x 4 extremities. Warm with good capillary refill and sensation. MAEW. NEUROLOGICAL: Asleep. A/P Problem List: (1) Multiple rib fractures involving four or more ribs (2) Chest wall pain Assessment and Plan [place]: This is a 89-year-old female who fell from a standing position in the bathtub. She landed on her LEFT side. INJURIES: LEFT rib fracture (3-7) LEF lung contusion Small LEFT hemothorax Diet: Regular diet. Tolerating po diet. Encourage good po intake with each meal. Add Ensure to every meal tray. Pulmonary: Encourage good pulmonary toileting. IS and acapella at bedside and pt encouraged to use. Rationale for use explained to patient, and verbalized understanding. EZ PAP. Chest x-ray today for follow-up evaluation of small left apical pneumothorax. PAIN Management: Percocet po. Lidocaine patch. Flexeril po. Tylenol IV. Resumed pt's home Norvasc dose. Activity: OOB. PT ordered. Ordered for out of bed with meals. GI prophylaxis: Protonix po Bowel regimen: Asya-colace and MOM. 0 BM. Intensified with bisacodyl PO and NC DVT prophylaxis: Mechanical VTE with SCDs. Chemical management with Lovenox SQ. Morning potassium = 3.0. IV and po replacement ordered. Recheck potassium 6 PM tonight. Recheck PT/INR with 6 PM draw. DC Planning: Case management consulted for assistance with final discharge disposition. Alf is evaluating the patient for admission. Emotional support provided to patient and family at bedside and plan of care discussed. Discussed with RN at bedside. Patient is hemodynamically stable and being managed on the med/surg floor. The exam, history, and the medical decision-making described in the above note were completed with the assistance of the mid-level provider. I reviewed and agree with the findings presented. I attest that I had a [id number] encounter with the patient on the same day, and personally performed and documented my assessment and findings in the medical record. Yanet Ferraro Nov 16, 2016 12:37 Benson Whitfield MD Nov 16, 2016 19:55
--- NOTE | 2016-11-16 13:37 | RADRPT ---
EXAM DATE/TIME: 11/16/2016 12:44 [facility] COMPARISON: CHEST SINGLE AP, November 15, 2016, 3:44. INDICATIONS : Evaluate pneumothorax. MEDICAL HISTORY : None. SURGICAL HISTORY : Hysterectomy. Pacemaker. Appendectomy. Colon resection. ENCOUNTER: Subsequent ACUITY: 4 - 6 days PAIN SCORE: 0/10 LOCATION: chest FINDINGS: The left apical pneumothorax noted on the prior days examination is not apparent. Chest is otherwise stable and unchanged. CONCLUSION: No evidence of left pneumothorax Gregory Silva MD on November 16, 2016 at 13:35 Board Certified Radiologist. This report was verified electronically.
[2016-11-16] MEDS: PANTOPRAZOLE SOD 40 MG DELAYED RELEASE TAB PO SCH (16:00)
[2016-11-16] MEDS ORDERED: POTASSIUM CHLORIDE 20 MEQ CONTROLLED RELEASE TAB PO ONE ×2 (16:00→18:00)
[2016-11-16 20:13] LABS: INTERNATIONAL NORMALIZED RATIO 4.3 RATIO; PROTHROMBIN TIME - PATIENT 51.2 SEC (9.8-11.6)
[2016-11-16] MEDS: MELATONIN 5 MG TAB PO SCH (20:32)
[2016-11-16] MEDS: ATORVASTATIN 40 MG TAB PO SCH (20:32)
[2016-11-16] MEDS: REMOVE OLD PATCH T-DERMAL SCH (20:38)
[2016-11-17] VITALS (7 sets, daily range): BP systolic 137–159; BP diastolic 62–65; PULSE 75–102; RESP 18; TEMP 98.4–98.6; O2SAT 92–97
[2016-11-17] MEDS: ACETAMINOPHEN 1000 MG/100 ML VIAL IV SCH (02:43)
[2016-11-17] MEDS: RESP: ALBUTEROL 2.5 MG/IPRATROPIUM 0.5 MG NEB (SCH) NEB ×3 (04:31→12:24)
[2016-11-17] MEDS ORDERED: LEVOTHYROXINE SODIUM 50 MCG TAB PO SCH (06:00)
[2016-11-17] MEDS: LEVOTHYROXINE SODIUM 50 MCG TAB PO SCH (06:11)
[2016-11-17] MEDS: oxyCODONE/ACETAMINOPHEN 5 MG/325 MG TAB PO PRN (06:11)
[2016-11-17] MEDS: MAGNESIUM HYDROXIDE SUSP 30 ML CUP PO SCH (08:52)
[2016-11-17] MEDS: DOCUSATE SODIUM 50 MG/SENNA 8.6 MG TAB PO SCH (08:52)
[2016-11-17] MEDS: SERTRALINE HCL 50 MG TAB PO SCH (08:53)
[2016-11-17] MEDS: predniSONE 5 MG TAB PO SCH (08:53)
[2016-11-17] MEDS: DIGOXIN 0.125 MG TAB PO SCH (08:53)
[2016-11-17] MEDS: PARICALCITOL 1 MCG CAP PO SCH (08:54)
[2016-11-17] MEDS: SODIUM CHLORIDE 0.9% FLUSH 5 ML FLUSH IVF SCH (08:54)
[2016-11-17] MEDS: LIDOCAINE HCL 5% PATCH TD SCH (08:54)
[2016-11-17] MEDS: amLODIPine BESYLATE 5 MG TAB PO SCH (08:54)
[2016-11-17] MEDS: LACTOBACILLUS ACIDOPHILUS TAB PO SCH (08:54)
[2016-11-17] MEDS ORDERED: MAGNESIUM CITRATE SOLN 300 ML BTL PO ONE (09:30)
[2016-11-17] MEDS ORDERED: LIDO5DIS35 TD (11:53)
[2016-11-17] MEDS ORDERED: ACET325T PO (11:53)
[2016-11-17] MEDS ORDERED: CYCL1TAB29 PO (11:53)
[2016-11-17] MEDS ORDERED: ZOLO50TA PO (11:53)
--- NOTE | 2016-11-17 13:55 | HHI.DS ---
Discharge Summary Admission Date Nov 13, 2016 at 13:29 Discharge Date: Nov 17, 2016 Admitting Diagnosis rib fractures (1) Multiple rib fractures involving four or more ribs (2) Chest wall pain Brief History S/P trauma: Fall CBC/BMP: 11/16/16 0637 11/16/16 1928 Significant Findings Laboratory Tests Test 11/15/16 11/16/16 11/16/16 03:31 06:37 19:28 Red Blood Count 3.61 MIL/MM3 3.73 MIL/MM3 (4.00-5.30) (4.00-5.30) Hemoglobin 9.5 GM/DL 9.9 GM/DL (11.6-15.3) (11.6-15.3) Hematocrit 29.0 % 29.8 % (35.0-46.0) (35.0-46.0) Mean Corpuscular Hemoglobin 26.3 PG 26.5 PG (27.0-34.0) (27.0-34.0) Prothrombin Time 47.6 SEC 51.2 SEC (9.8-11.6) (9.8-11.6) Potassium Level 3.4 MEQ/L 3.0 MEQ/L (3.5-5.1) (3.5-5.1) Blood Urea Nitrogen 26 MG/DL (7-18) Creatinine 1.19 MG/DL (0.50-1.00) Estimat Glomerular Filtration 43 ML/MIN (>89) 59 ML/MIN (>89) Rate Imaging Last Impressions Chest X-Ray 11/16/16 0000 Signed Impressions: Service Date/Time: Wednesday, November 16, 2016 12:44 - CONCLUSION: No evidence of left pneumothorax Gregory Silva MD Pelvis X-Ray 11/13/16 0000 Signed Impressions: Service Date/Time: Sunday, November 13, 2016 17:12 - CONCLUSION: No acute abnormality is seen. There is some mild hypertrophic change seen at the periphery of the left femoral head. Christopher Salazar MD Head CT 11/13/16 0000 Signed Impressions: Service Date/Time: Sunday, November 13, 2016 14:05 - CONCLUSION: 1. Stable noncontrast head CT. No acute finding is identified. 2. Chronic changes include cerebral atrophy and periventricular white matter low attenuation characteristic of chronic microvascular ischemia. Christopher Jain MD Chest CT 11/13/16 0000 Signed Impressions: Service Date/Time: Sunday, November 13, 2016 14:10 - CONCLUSION: 1. The left third through seventh ribs are fractured anterolaterally. There is no associated pneumothorax. 2. Small left pleural effusion with bilateral dependent atelectasis and possible consolidation/contusion in the left lower lobe. Christopher Jain MD PE at Discharge GENERAL: 89-year-old female OOB in chair. SKIN: Warm and dry. HEAD: Atraumatic. Normocephalic. EYES: PERRL ENT: No nasal bleeding or discharge. Mucous membranes pink and moist. NECK: Trachea midline. No JVD. CARDIOVASCULAR: Regular rate and rhythm. RESPIRATORY: Lungs are clear and diminished to auscultation. Breath sounds equal bilaterally. No distress or dyspnea. GASTROINTESTINAL: BS + x 4 quads. Abdomen soft, non-tender, nondistended. MUSCULOSKELETAL: Extremities without cyanosis, or edema. + peripheral pulses x 4 extremities. Warm with good capillary refill and sensation. MAEW. NEUROLOGICAL: Awake and alert. Hospital Course [place]: Patient fell from a standing position in the shower, landing on her left side. Initial complaints of left sided rib pain. On Coumadin, INR 4. INJURIES: LEFT rib fx (3-7) LEFT lung contusion Small LEFT hemothorax PMHx: Afib on Coumadin, Pacer, CVA, CAD, colon CA, arthritis, depression, hyperlipidemia, CKD, GERD, HTN Diet: Heart healthy with Ensure. Pulmonary: IS, acapella, EZPAP nebs. Pain: Lidocaine patch. Flexeril. Discontinue Percocet. Patient states she feels confused and "foggy" on the pain medication. Activity: OOB, PT evaluating. GI: PO Protonix Bowel: Asya-colace, MOM. No BM yet. Mag citrate today x1. DVT: SCDs Patient has been accepted at [facility] for continued therapy. Patient's INR has been supra-therapeutic since admission. INR yesterday increased to 4.3. Check INR every other day until INR <3. When INR <3, resume home Coumadin 3.5mg PO daily. Plan of care discussed with patient at bedside. F/U PCP in 2 weeks. Patient is clear from trauma surgery standpoint to safely discharged inpatient rehab. Pt Condition on Discharge: Stable Discharge Disposition: Rehab Inpatient Discharge Instructions DIET: Follow Instructions for: Heart Healthy Diet Additional Diet Instructions: Ensure TID Activities you can perform: Regular-No Restrictions Manpreet Horton Nov 17, 2016 13:55
[2016-11-29] MEDS ORDERED: METO25TA3 PO (08:18)
[2016-11-29] MEDS ORDERED: CYCL1TAB29 PO (08:18)
[2016-11-29] MEDS ORDERED: ULTR50TA5 PO (08:18)
[2016-11-29] MEDS ORDERED: PARI1CAP4 PO (08:18)
[2016-11-29] MEDS ORDERED: TRIME100 PO (08:18)
[2016-11-29] MEDS ORDERED: PANT40TA3 PO (08:18)
[2016-11-29] MEDS ORDERED: LIDO5DIS35 TD (08:18)
[2016-11-29] MEDS ORDERED: THERH PO (08:18)
[2016-11-29] MEDS ORDERED: FERR325T PO (08:18)
[2016-11-29] MEDS ORDERED: SERT-132 PO (08:18)
[2016-11-29] MEDS ORDERED: AMLO5TAB2 PO (08:18)
[2016-11-29] MEDS ORDERED: LEVO50TA4 PO (08:18)
[2016-11-29] MEDS ORDERED: DIGO0.12 PO (08:18)
[2016-11-29] MEDS ORDERED: PRED5TAB PO (08:18)
[2016-11-29] MEDS ORDERED: COUM2.5T PO (08:18)
[2016-11-29] MEDS ORDERED: LACT PO (08:18)
[2016-11-29] MEDS ORDERED: ATOR40TA16 PO (08:18)
== END 2016-11-17 14:09 | DRG 183 ==
LOC: PHED 11:44 → PHEDA 13:29 → N03B 15:13 → N04B 11-15 17:35
PROVIDERS: ADMIT Surgery; ATTEND Surgery
DX: S22.42XA Multiple fractures of ribs, left side, initial encounter for closed fracture (principal); S27.1XXA Traumatic hemothorax, initial encounter; S27.321A Contusion of lung, unilateral, initial encounter; I13.0 Hypertensive heart and chronic kidney disease with heart failure and stage 1 through stage 4 chronic kidney disease, or unspecified chronic kidney disease; I48.2 Chronic atrial fibrillation; I50.9 Heart failure, unspecified; J98.11 Atelectasis; J44.9 Chronic obstructive pulmonary disease, unspecified; E03.9 Hypothyroidism, unspecified; I25.10 Atherosclerotic heart disease of native coronary artery without angina pectoris; Z95.0 Presence of cardiac pacemaker; Y92.9 Unspecified place or not applicable; E78.5 Hyperlipidemia, unspecified; N18.9 Chronic kidney disease, unspecified; K21.9 Gastro-esophageal reflux disease without esophagitis; M19.90 Unspecified osteoarthritis, unspecified site; R09.02 Hypoxemia; W18.2XXA Fall in (into) shower or empty bathtub, initial encounter; Y92.002 Bathroom of unspecified non-institutional (private) residence as the place of occurrence of the external cause; Z79.01 Long term (current) use of anticoagulants; Z86.73 Personal history of transient ischemic attack (TIA), and cerebral infarction without residual deficits; Z66 Do not resuscitate; F32.9 Major depressive disorder, single episode, unspecified; Z85.038 Personal history of other malignant neoplasm of large intestine
CPT/HCPCS: 70450; 71010; 71250; 72170; 80048; 80053; 83735; 84132; 84484; 85025; 85027; 85610; 87641; 93005; 94150; 94640; 94664; 94667; 94668; 96374; 96375; J0131; J2270; J2310; J3480; J7030; J7512